=== PATIENT | female | born 1985 | race Caucasian/White ===

== ENCOUNTER 2021-09-01 23:08 | Emergency (ER) | payer BC, SELFPAY ==
[2021-09-01 23:20] VITALS: BP 97/75; PULSE 97; RESP 30; TEMP 36.6; O2SAT 97
--- NOTE | 2021-09-01 23:49 | CRLHL7_ITS ---
For Patients: As a result of the Century Cures Act, medical imaging exams and procedure reports are released immediately into your electronic medical record. You may view this report before your referring provider. If you have questions, please contact your health care provider. INDICATION: Stomach/back pain. TECHNIQUE: CT abdomen and pelvis without contrast. COMPARISON: None. FINDINGS: Lower chest: Unremarkable. Liver: Normal in size and attenuation. No suspicious masses. Gallbladder and bile ducts: No stones or inflammation. No biliary dilatation. Pancreas: Unremarkable. No mass or inflammation. Spleen: Normal in size. No masses. Adrenal glands: Normal in size. No nodules. Kidneys: Normal in size. No suspicious masses, stones, or hydronephrosis. GI tract: Unremarkable. Normal in caliber. No sign of mass or inflammation. Normal appendix. Vasculature: Abdominal aorta is normal in caliber. Lymph nodes: No lymphadenopathy. Peritoneum/Abdominal Wall: Unremarkable. No sign of mass or infiltration. No free air or significant free fluid. Pelvis: Unremarkable. No pelvic masses. Bones: Unremarkable for age. IMPRESSION: No acute intra-abdominal process identified. Please note that all CT scans at this facility use dose modulation, iterative reconstruction, and/or weight-based dosing when appropriate to reduce radiation dose to as low as reasonably achievable. Dictated by Raleigh Gudino MD @ 09/02/2021 12:54:43 AM (Electronically Signed)
[2021-09-02 00:11] LABS: Basophils Absolute Auto 0.04 K/uL (0.00-0.30); Basophils Percent Auto 0.5 % (0.0-3.0); Eosinophils Absolute Auto 0.25 K/uL (0.00-0.50); Eosinophils Percent Auto 3.1 % (0.0-7.0); Hematocrit 37.2 % (33.0-51.0); Hemoglobin* 12.8 gm/dL (12.0-16.0); Immature Granulocytes Abs Auto 0.01 K/uL (0.00-0.30); Lymphocytes Absolute Auto 3.41 K/uL (0.90-2.90); Lymphocytes Percent Auto 42.5 % (20-44); Mean Corpuscular HGB Conc 34 gm/dL (32-36); Mean Corpuscular Hemoglobin 31 pg (26-34); Mean Corpuscular Volume 89 fL (80-100); Monocytes Percent Auto 7.2 % (0.0-11.0); Neutrophils Absolute Auto 3.74 K/uL (1.7-7.0); Neutrophils Percent Auto 46.6 % (42.0-72.0); Platelet Count* 342 K/uL (140-440); RDW Coefficient of Variation % 12.1 % (11.5-15.5); White Blood Count* 8.03 K/uL (4.50-11.00)
[2021-09-02 00:13] LABS: Slide Review Reflex No
[2021-09-02 00:23] LABS: Albumin* 4.6 g/dL (3.3-5.0)
[2021-09-02 00:24] LABS: Chloride* 102 mmol/L (96-114); Potassium* 3.4 mmol/L (3.6-5.1); Sodium* 138 mmol/L (135-149)
[2021-09-02 00:26] LABS: Bilirubin Direct* 0.2 mg/dL (0.0-0.5); Bilirubin Total* 0.3 mg/dL (0.1-1.5); Carbon Dioxide* 28 mmol/L (20-32); Creatinine* 0.7 mg/dL (0.5-1.5); Estimated Glomerular Filt Rate 116 ml/min; Lipase* 72 U/L (23-300)
[2021-09-02 00:27] LABS: Alanine Aminotransferase* 16 U/L (4-35); Alkaline Phosphatase* 52 U/L (40-150); Aspartate Amino Transferase* 24 U/L (12-35); Blood Urea Nitrogen* 17 mg/dL (5-24); Calcium* 9.6 mg/dL (8.4-10.6); Glucose* 99 mg/dL (60-115); Total Protein* 7.4 g/dL (6.0-8.3)
[2021-09-02] MEDS: fentaNYL 100 MCG/2 ML inj 50 MCG IVP (00:27)
[2021-09-02] MEDS: 0.9 % SODIUM CHLORIDE 1000 ml 1,000 ML IV (00:27)
[2021-09-02 01:30] VITALS: BP 120/70; PULSE 82; RESP 16; O2SAT 99
--- NOTE | 2021-09-02 01:34 | ED.NURSE ---
Patient ambulatory to
[2021-09-02 01:58] LABS: Appearance Urine Clear (Clear); Bilirubin Urine Negative (Negative); Blood Urine Negative (Negative); Color Urine Yellow (Yellow); Glucose Urine Negative (Negative); Ketones Urine Negative (Negative); Leukocyte Esterase Urine Negative (Negative); Nitrite Urine Negative (Negative); Protein Urine Negative (Negative); Specific Gravity Urine 1.015 (1.000-1.030); Urobilinogen Urine 0.2 (0.2-1.0); pH Urine 8.5 (5.0-8.5)
[2021-09-02 02:11] LABS: RBC Urine 0-2 (0-2); Squamous Epithelial Cell Urine Moderate (None-Few); WBC Urine 0-2 (0-5)
--- NOTE | 2021-09-07 05:46 | ED_ITS ---
HPI - Abdominal Pain General Chief Complaint: Abdominal Pain Stated Complaint: Stomach and back pain can't breathe Time Seen by Provider: 09/01/21 23:27 History of Present Illness HPI narrative: Patient is a 36-year-old female who comes in with sudden onset of abdominal pain mainly in the epigastric area but spreading outward from there. This came on at shortly after she got a potato chip stuck in her throat and swallowed hard. She has had no fevers or chills. No nausea, vomiting, diarrhea. She denies any dysuria, urgency, frequency. She has not taken anything to help thus far. She has never had pain like this previously. Related Data Patient : No Home Medications Medication Instructions Recorded Confirmed multivitamin 1 tab PO DAILY 09/01/21 09/01/21 Allergies Allergy/AdvReac Type Severity Reaction Status Date / Time azithromycin Allergy Unknown Verified 09/01/21 23:27 Penicillins Allergy Unknown Verified 09/01/21 23:27 Review of Systems Status of ROS Reports: 10 or more systems reviewed and unremarkable except as noted in History and below [facility] Medical History (Updated 09/02/21 @ 01:59 by Mayco Justice MD) Influenza A Tachycardia Surgical History (Updated 09/01/21 @ 23:28 by Chyna Cortes RN) H/O section Social History Smoking Status: Unknown if ever smoked Do you use any of these nicotine containing products: None Second hand tobacco smoke exposure: No How often do you have a drink containing alcohol: never AUDIT-C Alcohol total score: 0 Non-prescribed substance use: denies use service: No Exam Narrative: Exam Narrative: Vitals noted. HEENT: Conjunctiva clear. Tympanic membranes are pearly white bilaterally. Posterior pharynx is clear without erythema or exudate. Neck is supple without adenopathy, thyromegaly, carotid bruit. Lungs: Clear to auscultation in all dun[place]. No wheezes, rales, rhonchi. Heart: Regular rate and rhythm without murmur. Abdomen: Soft with diffuse tenderness. No guarding, rigidity, rebound. Bowel sounds are normal. No palpable masses. Extremities: No cyanosis or edema. Good distal pulses. Skin: No abnormalities noted of the exposed skin. Neurologic: Awake, alert, fully oriented. Neurologic exam is nonfocal. Course Course Hospital Course: Patient is seen and examined. Labs and CT are ordered. She is given a GI cocktail and fentanyl 50 mcg well as L of normal saline. Reevaluation(s) Reevaluation #1: Her pain is mainly resolved. She is reassured by her normal labs and CT. Vital Signs Vital signs: Initial Vital Signs Temperature 97.8 F 09/01/21 23:20 Temperature Source Temporal Artery Scan 09/01/21 23:20 Pulse Rate 97 09/01/21 23:20 Pulse Rhythm 09/01/21 23:20 Respiratory Rate 30 H 09/01/21 23:20 Blood Pressure 97/75 09/01/21 23:20 Blood Pressure Mean 82 09/01/21 23:20 Blood Pressure Position Sitting 09/01/21 23:20 Pulse Oximetry 97 09/01/21 23:20 Oxygen Delivery Method 09/01/21 23:20 Vital Signs Temperature 97.8 F 09/01/21 23:20 Pulse Rate 97 09/01/21 23:20 Respiratory Rate 30 H 09/01/21 23:20 Blood Pressure 97/75 09/01/21 23:20 Pulse Oximetry 97 09/01/21 23:20 Temperature 97.8 F 09/01/21 23:20 Pulse Rate 82 09/02/21 01:30 Respiratory Rate 16 09/02/21 01:30 Blood Pressure 120/70 09/02/21 01:30 Pulse Oximetry 99 09/02/21 01:30 MDM - Abdominal Pain Lab Data Labs: Lab Results 09/01/21 09/01/21 09/01/21 Range/Units 23:25 23:25 23:25 WBC 8.03 (4.50-11.00) K/uL RBC 4.20 (4.00-5.20) m/uL Hgb 12.8 (12.0-16.0) gm/dL Hct 37.2 (33.0-51.0) % MCV 89 (80-100) fL MCH 31 (26-34) pg MCHC 34 (32-36) gm/dL RDW Coeff of Denis 12.1 (11.5-15.5) % Plt Count 342 (140-440) K/uL Neut % (Auto) 46.6 (42.0-72.0) % Lymph % (Auto) 42.5 (20-44) % [place] % (Auto) 7.2 (0.0-11.0) % Eos % (Auto) 3.1 (0.0-7.0) % Baso % (Auto) 0.5 (0.0-3.0) % Neut # (Auto) 3.74 (1.7-7.0) K/uL Lymph # (Auto) 3.41 H (0.90-2.90) K/uL [place] # (Auto) 0.60 (0.00-0.90) K/UL Eos # (Auto) 0.25 (0.00-0.50) K/uL Baso # (Auto) 0.04 (0.00-0.30) K/uL Abs Immat Gran (auto) 0.01 (0.00-0.30) K/uL Sodium 138 (135-149) mmol/L Potassium 3.4 L (3.6-5.1) mmol/L Chloride 102 (96-114) mmol/L Carbon Dioxide 28 (20-32) mmol/L BUN 17 (5-24) mg/dL Creatinine 0.7 (0.5-1.5) mg/dL Estimated GFR 116 ml/min Glucose 99 (60-115) mg/dL Calcium 9.6 (8.4-10.6) mg/dL Total Bilirubin 0.3 (0.1-1.5) mg/dL Direct Bilirubin 0.2 (0.0-0.5) mg/dL AST 24 (12-35) U/L ALT 16 (4-35) U/L Alkaline Phosphatase 52 (40-150) U/L Total Protein 7.4 (6.0-8.3) g/dL Albumin 4.6 (3.3-5.0) g/dL Lipase 72 (23-300) U/L Urine Color (Yellow) Urine Appearance (Clear) Urine pH (5.0-8.5) Ur Specific Jbphh (1.000-1.030) Urine Protein (Negative) Urine Glucose (UA) (Negative) Urine Ketones (Negative) Urine Blood (Negative) Urine Nitrite (Negative) Urine Bilirubin (Negative) Urine Urobilinogen (0.2-1.0) Ur Leukocyte Esterase (Negative) Urine RBC (0-2) Urine WBC (0-5) Ur Squamous Epith Cells (None-Few) Urine Bacteria (None) 09/02/21 Range/Units 01:45 WBC (4.50-11.00) K/uL RBC (4.00-5.20) m/uL Hgb (12.0-16.0) gm/dL Hct (33.0-51.0) % MCV (80-100) fL MCH (26-34) pg MCHC (32-36) gm/dL RDW Coeff of Denis (11.5-15.5) % Plt Count (140-440) K/uL Neut % (Auto) (42.0-72.0) % Lymph % (Auto) (20-44) % [place] % (Auto) (0.0-11.0) % Eos % (Auto) (0.0-7.0) % Baso % (Auto) (0.0-3.0) % Neut # (Auto) (1.7-7.0) K/uL Lymph # (Auto) (0.90-2.90) K/uL [place] # (Auto) (0.00-0.90) K/UL Eos # (Auto) (0.00-0.50) K/uL Baso # (Auto) (0.00-0.30) K/uL Abs Immat Gran (auto) (0.00-0.30) K/uL Sodium (135-149) mmol/L Potassium (3.6-5.1) mmol/L Chloride (96-114) mmol/L Carbon Dioxide (20-32) mmol/L BUN (5-24) mg/dL Creatinine (0.5-1.5) mg/dL Estimated GFR ml/min Glucose (60-115) mg/dL Calcium (8.4-10.6) mg/dL Total Bilirubin (0.1-1.5) mg/dL Direct Bilirubin (0.0-0.5) mg/dL AST (12-35) U/L ALT (4-35) U/L Alkaline Phosphatase (40-150) U/L Total Protein (6.0-8.3) g/dL Albumin (3.3-5.0) g/dL Lipase (23-300) U/L Urine Color Yellow (Yellow) Urine Appearance Clear (Clear) Urine pH 8.5 (5.0-8.5) Ur Specific Jbphh 1.015 (1.000-1.030) Urine Protein Negative (Negative) Urine Glucose (UA) Negative (Negative) Urine Ketones Negative (Negative) Urine Blood Negative (Negative) Urine Nitrite Negative (Negative) Urine Bilirubin Negative (Negative) Urine Urobilinogen 0.2 (0.2-1.0) Ur Leukocyte Esterase Negative (Negative) Urine RBC 0-2 (0-2) Urine WBC 0-2 (0-5) Ur Squamous Epith Cells Moderate A (None-Few) Urine Bacteria None (None) Discharge Plan Discharge Clinical Impression: Abdominal pain Patient Disposition: Home, Self-Care Condition: Improved Instructions: Abdominal Pain (ED) Additional Instructions: Push fluids. [place] diet for the next day or two days. Tylenol or ibuprofen for pain. Follow-up in the clinic if pain returns. Activity Level: No Restrictions Prescriptions: No Action multivitamin Tablet 1 tab PO DAILY 0RF Stand Alone Forms: [employer] Info Instructions
== END 2021-09-02 02:37 | disposition home or self-care (01) ==
LOC: ED 09-02 02:02
PROVIDERS: Emergency Provider Family Medicine; PCP Family Medicine
DX: R10.9 Unspecified abdominal pain (principal)
CPT/HCPCS: 36415; 74176; 80048; 80076; 81001; 81015; 83690; 85025; 96374; 99283; 99284; J3010; J7030

== ENCOUNTER 2021-09-25 21:16 | Emergency (ER) | payer BC, SELFPAY ==
[2021-09-25 21:37] VITALS: BP 141/87; PULSE 79; RESP 18; TEMP 36.9; O2SAT 100; BMI 23.3
--- NOTE | 2021-09-25 21:45 | CRLHL7_ITS ---
For Patients: As a result of the Century Cures Act, medical imaging exams and procedure reports are released immediately into your electronic medical record. You may view this report before your referring provider. If you have questions, please contact your health care provider. HISTORY: Chest pain. COVID-19. TECHNIQUE: One view of the chest. COMPARISON: No prior. FINDINGS: There is no acute lung infiltrate or pulmonary edema. No pneumothorax or pleural effusion. Heart size and pulmonary vasculature within normal limits. Mild scoliosis. IMPRESSION: No acute lung infiltrate. Dictated by Jakob Atwood MD @ 09/25/2021 10:57:24 PM Dictated by: Jakob Atwood MD @ 09/25/2021 22:57:30 (Electronically Signed)
--- NOTE | 2021-09-25 23:04 | ED_ITS ---
HPI - General Adult General Time Seen by Provider: 23:04 Date Seen: 09/25/21 Chief complaint: Chest Pain Stated complaint: Covid pos, w/chest pain Time Seen by Provider: 09/25/21 22:31 Source: patient Mode of arrival: ambulatory Limitations: no limitations History of Present Illness HPI narrative: 36-year-old female who comes in today with chest pain and shortness of breath. Patient started having upper respiratory symptoms a week ago with sinus congestion, body aches, and cough. She had a positive COVID test 6 days ago. Since then she has continued to have some sinus congestion and cough but comes in today concerned about chest pain and shortness of breath. She describes tightness across her chest along with occasional sharp pains. This does not seem to be related with position or activity, and she does not feel like this is worse when she breathes. She has dyspnea with exertion, not as bad at rest. Cough is nonproductive. She denies current vomiting or diarrhea. She denies any history of lung problems, she has a distant history of smoking. Related Data Home Medications Medication Instructions Recorded Confirmed multivitamin 1 tab PO DAILY 09/01/21 09/01/21 Allergies Allergy/AdvReac Type Severity Reaction Status Date / Time azithromycin Allergy Unknown Verified 09/01/21 23:27 Penicillins Allergy Unknown Verified 09/01/21 23:27 Review of Systems Status of ROS: Reports: 10 or more systems reviewed and unremarkable except as noted in History and below [facility] Medical History (Updated 09/26/21 @ 00:26 by Fidel Redmond MD) Influenza A Tachycardia Surgical History (Updated 09/01/21 @ 23:28 by Chyna Cortes RN) H/O section Social History Smoking Status: Former smoker Do you use any of these nicotine containing products: None Second hand tobacco smoke exposure: No How often do you have a drink containing alcohol: monthly or less AUDIT-C Alcohol total score: 1 Non-prescribed substance use: denies use service: No Exam Const: Vital Signs, click to edit/add: Vital Signs - 24 hr 09/25/21 21:37 Temperature 98.5 F Pulse Rate [Left P ulse Oximeter] 79 Respiratory Rate 18 Blood Pressure [Ri ght Upper Arm] 141/87 H Pulse Oximetry 100 Oxygen Delivery Me thod Room Air Documenting provider has reviewed patient's vital signs: yes Common normals: no apparent distress, oriented x3, alert and well nourished HENMT: Common normals: normocephalic, head/scalp atraumatic, external ears normal and external nose normal Head and scalp: normocephalic and atraumatic Nose: external nose normal External ear: external ears normal Eye: Common normals: PERRL and conjunctivae normal Conjunctiva: conjunctiva(e) normal Pupil: PERRL Neck & C-Spine: Common normals: full ROM, no lymphadenopathy and supple Chest: Common normals: palpation of chest normal Resp: Common normals: normal respiratory effort and clear to auscultation bilaterally Auscultation: clear to auscultation bilaterally Cardio: Common normals: regular rate, regular rhythm and no murmurs Rate: regular rate Rhythm: regular rhythm GI: Common normals: Normal to inspection, nondistended, normoactive bowel sounds present, soft to palpation and non-tender Palpation: soft : Common normals: no CVA tenderness Bladder/kidney exam: no CVA tenderness Back & Pelvis: Common normals: no CVA tenderness and thoracic and lumbar spine normal to inspection Extremity: Common normals: normal to inspection, full ROM and no pedal edema Neuro: Common normals: oriented x3, CN's II-XII intact bilaterally and no focal motor deficits Sensorium/orientation: alert Psych: Common normals: mental status grossly normal Skin: Common normals: no rashes or lesions noted General skin exam: no rashes or lesions noted Course Course Hospital Course: Patient seen and examined, prior records are reviewed. Patient about 1 week and having COVID and notes chest tightness and dyspnea on exertion. Oxygen saturat ions here normal and heart rate is normal, lungs are clear. This likely represents normal course of COVID but cannot exclude pulmonary embolism although perc negative, D-dimer is ordered. Myocarditis/endocarditis also possible and labs and EKG are ordered for that. Chest x-ray personally reviewed and interpreted by me is negative. Reevaluation(s) Reevaluation #1: Labs are reassuring including negative D-dimer, negative troponin. Chest x-ray is negative. EKG does not demonstrate any findings of pericarditis. Symptoms are most likely related to residual inflammation from COVID. Continue symptomatic treatment with Tylenol ibuprofen, activity as tolerated. Patient is stable for discharge. Time: 00:24 Vital Signs Vital signs: Initial Vital Signs Temperature 98.5 F 09/25/21 21:37 Temperature Source Temporal Artery Scan 09/25/21 21:37 Pulse Rate 79 09/25/21 21:37 Respiratory Rate 18 09/25/21 21:37 Blood Pressure 141/87 H 09/25/21 21:37 Blood Pressure Mean 105 09/25/21 21:37 Blood Pressure Position Supine 09/25/21 21:37 Pulse Oximetry 100 09/25/21 21:37 Oxygen Delivery Method 09/25/21 21:37 Vital Signs Temperature 98.5 F 09/25/21 21:37 Pulse Rate 79 09/25/21 21:37 Respiratory Rate 18 09/25/21 21:37 Blood Pressure 141/87 H 09/25/21 21:37 Pulse Oximetry 100 09/25/21 21:37 Oxygen Delivery Method 09/25/21 21:37 Temperature 98.5 F 09/25/21 21:37 Pulse Rate 79 09/25/21 21:37 Respiratory Rate 18 09/25/21 21:37 Blood Pressure 141/87 H 09/25/21 21:37 Pulse Oximetry 100 09/25/21 21:37 Oxygen Delivery Method 09/25/21 21:37 Medical Decision Making Medical Records Medical records reviewed: Yes I reviewed the patient's medical records Lab Data Lab results reviewed: Yes I reviewed the patient's lab results Labs: Lab Results 09/25/21 09/25/21 09/25/21 Range/Units 23:15 23:20 23:20 D-Dimer Quant (PE/DVT) 0.28 (0.00-0.50) ug/ml Sodium 137 (135-149) mmol/L Potassium 3.8 (3.6-5.1) mmol/L Chloride 100 (96-114) mmol/L Carbon Dioxide 29 (20-32) mmol/L BUN 10 (5-24) mg/dL Creatinine 0.6 (0.5-1.5) mg/dL Estimated Creat Clear 117.76 Estimated GFR 120 ml/min Glucose 90 (60-115) mg/dL Calcium 8.7 (8.4-10.6) mg/dL NT-Pro-B Natriuret Pep (0-125) PG/mL POC Troponin I 0.00 L (0.01-0.04) ng/ml 09/25/21 Range/Units 23:20 D-Dimer Quant (PE/DVT) (0.00-0.50) ug/ml Sodium (135-149) mmol/L Potassium (3.6-5.1) mmol/L Chloride (96-114) mmol/L Carbon Dioxide (20-32) mmol/L BUN (5-24) mg/dL Creatinine (0.5-1.5) mg/dL Estimated Creat Clear Estimated GFR ml/min Glucose (60-115) mg/dL Calcium (8.4-10.6) mg/dL NT-Pro-B Natriuret Pep 40 (0-125) PG/mL POC Troponin I (0.01-0.04) ng/ml Imaging Data Chest x-ray: Attestation: I have reviewed the pertinent imaging results. My impression: Negative Radiologist's impression: Negative ECG Data Attestation: I personally reviewed and interpreted this ECG as follows: Prior ECG tracings: not available for review Interpretation: Performed at 11:11 p.m. demonstrates normal sinus rhythm rate 62, no acute ST e levations or depressions, normal intervals, normal axis, QTC 426, P are 184. Discharge Plan Discharge Clinical Impression: SPANGLER (dyspnea on exertion), Chest pain Patient Disposition: Home, Self-Care Condition: Stable Instructions: Dyspnea (ED) Additional Instructions: Based on examination today, there is no evidence for blood clots, or heart damage. Your symptoms are likely related to continued inflammation and healing related to your recent COVID infection. Continue activity as tolerated, Tylenol ibuprofen for pain. Follow-up with your primary care doctor in 5-7 days Activity Level: No Restrictions Discharge Diet: Regular Prescriptions: No Action multivitamin Tablet 1 tab PO DAILY Follow Up/Referrals: Norma العراقي MD [Primary Care Provider] - Stand Alone Forms: [facility] Info Instructions
[2021-09-25 23:49] LABS: Chloride* 100 mmol/L (96-114); Potassium* 3.8 mmol/L (3.6-5.1); Sodium* 137 mmol/L (135-149)
[2021-09-25 23:51] LABS: Creatinine* 0.6 mg/dL (0.5-1.5); Est. Creatinine Clearance* 117.76; Estimated Glomerular Filt Rate 120 ml/min
[2021-09-25 23:52] LABS: Blood Urea Nitrogen* 10 mg/dL (5-24); Calcium* 8.7 mg/dL (8.4-10.6); Carbon Dioxide* 29 mmol/L (20-32); Glucose* 90 mg/dL (60-115)
[2021-09-25 23:53] LABS: D Dimer Quantitative* 0.28 ug/ml (0.00-0.50)
[2021-09-26 00:01] LABS: NT Pro B Type NatriureticPept* 40 PG/mL (0-125)
== END 2021-09-26 00:34 | disposition home or self-care (01) ==
PROVIDERS: Emergency Provider Family Medicine; PCP Family Medicine
DX: U07.1 COVID-19 (principal)
CPT/HCPCS: 36415; 71045; 80048; 83880; 84484; 85379; 93005; 99284

== ENCOUNTER 2022-12-06 19:42 | Emergency (ER) | payer BC, SELFPAY ==
[2022-12-06 20:00] VITALS: BP 128/82; PULSE 89; RESP 18; TEMP 36.9; O2SAT 100
[2022-12-06 20:52] VITALS: BP 125/70; PULSE 76; RESP 18; O2SAT 98
--- NOTE | 2022-12-06 21:06 | ED_ITS ---
HPI - Chest Pain General Chief Complaint: Chest Pain Stated Complaint: Chest pain Time Seen by Provider: 12/06/22 20:50 History of Present Illness HPI narrative: This 37-year-old female comes in reporting pain in her back that has been recurrent but now has been having pain also in her left chest that is reproducible when taking a deep breath. She also is concerned because she had some drainage from her left nipple and has noticed that that nipple seems involuted now. She also notes a dimple in the inferior portion of her left breast. She states that her family has a history of breast cancer. She does have a remote history of smoking but has quit smoking now. She does not report any fevers or injury event. She states that she does not go to a doctor as she is a single mother and is devoid Ng all of her energies to being a mother and keeping her family going and thereby neglect Ng some of her own checkups. Related Data Home Medications Medication Instructions Recorded Confirmed multivitamin 1 tab PO DAILY 09/01/21 11/30/21 Previous Rx's Medication Instructions Recorded triamcinolone acetonide 0.1 % 1 applic topical BID #15 grams 12/06/22 topical cream Allergies Allergy/AdvReac Type Severity Reaction Status Date / Time azithromycin Allergy Unknown Verified 12/06/22 22:37 Penicillins Allergy Unknown Verified 12/06/22 22:37 erythromycin Allergy Unknown Uncoded 12/06/22 22:37 Review of Systems Status of ROS Reports: 10 or more systems reviewed and unremarkable except as noted in History and below Narrative Constitutional: No fevers, no weight gain or loss. Eyes: No discharge. No vision changes. HENT: No congestion, no sore throat, no ear pain. Cardiovascular: No chest pain, no palpitations. Respiratory: No shortness of breath, no wheezes, no cough. Gastrointestinal: No abdominal pain, no vomiting, no diarrhea. Genitourinary: No dysuria, no hematuria. Musculoskeletal: Normal range of motion. Skin: No rashes, no pruritis. Neurological: No dizziness, weakness, sensory change, speech change. Endo/Heme/Allergies: No bruising or bleeding. No polydipsia. Pysch: no suicidality, no anxiety, no insomnia. All other systems reviewed and are negative. [facility] Medical History (Updated 12/06/22 @ 23:03 by Amado Sosa MD) Tachycardia ?R00.0 - Tachycardia, unspecified (ICD-10) Influenza A ?J10.1 - Influenza due to other identified influenza virus with other respiratory manifestations (ICD-10) Surgical History (Updated 09/01/21 @ 23:28 by Chyna Cortes RN) H/O section ?Z98.891 - History of uterine scar from previous surgery (ICD-10) Social History Smoking Status: Never smoker Do you use any of these nicotine containing products: None Second hand tobacco smoke exposure: No How often do you have a drink containing alcohol: monthly or less AUDIT-C Alcohol total score: 1 Non-prescribed substance use: denies use service: No Exam Narrative Exam Narrative: Constitutional: Well-developed, well-nourished, no acute distress. HEENT: Normocephalic, atraumatic. Neck: Normal range of motion. Nontender. Supple. Heart: Regular. No murmurs. Normal rate. Intact distal pulses. Lungs: Clear to auscultation. No chest discomfort. No wheezes, rhonchi, or rales. Abdomen: Normal bowel sounds. Nontender. No rebound tenderness. Genitalia: Deferred. Back: No midline tenderness. Normal range of motion. Extremities: Normal range of motion. No injury. Skin: Intact. No rash. Warm. No erythema or pallor. Neurologic: No altered sensation. No weakness. Alert and oriented. Psychiatric: No suicidality. No anxiety or depression. No insomnia. Nursing notes and vitals signs are reviewed. Const Vital Signs, click to edit/add: Vital Signs - 24 hr 12/06/22 20:00 Temperature 98.5 F Pulse Rate [Left Pulse Oximeter] 89 Respiratory Rate 18 Blood Pressure [Right Upper Arm] 128/82 Pulse Oximetry 100 Oxygen Delivery Method Room Air Course Vital Signs Vital signs: Initial Vital Signs Temperature 98.5 F 12/06/22 20:00 Temperature Source Temporal Artery Scan 12/06/22 20:00 Pulse Rate 89 12/06/22 20:00 Pulse Rhythm Regular 12/06/22 20:00 Respiratory Rate 18 12/06/22 20:00 Blood Pressure 128/82 12/06/22 20:00 Blood Pressure Mean 97 12/06/22 20:00 Blood Pressure Position Sitting 12/06/22 20:00 Pulse Oximetry 100 12/06/22 20:00 Oxygen Delivery Method Room Air 12/06/22 20:00 Vital Signs Temperature 98.5 F 12/06/22 20:00 Pulse Rate 89 12/06/22 20:00 Respiratory Rate 18 12/06/22 20:00 Blood Pressure 128/82 12/06/22 20:00 Pulse Oximetry 100 12/06/22 20:00 Oxygen Delivery Method Room Air 12/06/22 20:00 Temperature 98.5 F 12/06/22 20:00 Pulse Rate 89 12/06/22 20:00 Respiratory Rate 18 12/06/22 20:00 Blood Pressure 128/82 12/06/22 20:00 Pulse Oximetry 100 12/06/22 20:00 Oxygen Delivery Method Room Air 12/06/22 20:00 MDM - Chest Pain MDM Narrative Medical decision making narrative: This patient comes in reporting left chest pain and back pain that is reproducible when taking a deep breath. She states that she has not been to the doctor and has anxiety about her health. Her mother has diseases including breast cancer and she is worried about these things happening to her. I did use bedside ultrasound and saw normal exam of her left breast. Additionally a CT scan of her chest with IV contrast was completed. This returns with no acute findings and is reassuring to her. I ordered these because of her anxiety about her symptoms and her family history. Most likely her symptoms are related to chest wall pain. I did recommend getting a mammogram. I provided prescription for Toradol and Flexeril. She also received a prescription for triamcinolone cream as she has some itchy rash on her left knee. Lab Data Labs: Lab Results 12/06/22 12/06/22 12/06/22 Range/Units 21:05 21:28 21:28 WBC 8.14 (4.50-11.00) K/uL RBC 4.12 (4.00-5.20) m/uL Hgb 12.5 (12.0-16.0) gm/dL Hct 37.1 (33.0-51.0) % MCV 90 (80-100) fL MCH 30 (26-34) pg MCHC 34 (32-36) gm/dL RDW Coeff of Denis 11.9 (11.5-15.5) % Plt Count 297 (140-440) K/uL Neut % (Auto) 59.5 (42.0-72.0) % Lymph % (Auto) 30.8 (20-44) % [place] % (Auto) 6.4 (0.0-11.0) % Eos % (Auto) 2.8 (0.0-7.0) % Baso % (Auto) 0.4 (0.0-3.0) % Neut # (Auto) 4.84 (1.7-7.0) K/uL Lymph # (Auto) 2.51 (0.90-2.90) K/uL [place] # (Auto) 0.50 (0.00-0.90) K/UL Eos # (Auto) 0.23 (0.00-0.50) K/uL Baso # (Auto) 0.03 (0.00-0.30) K/uL Abs Immat Gran (auto) 0.01 (0.00-0.30) K/uL Imm/Tot Granulo (auto) 0.1 % Sodium 137 (135-149) mmol/L Potassium 3.5 L (3.6-5.1) mmol/L Chloride 103 (96-114) mmol/L Carbon Dioxide 25 (20-32) mmol/L Anion Gap 9 (7-15) mEq/L BUN 17 (5-24) mg/dL Creatinine 0.7 (0.5-1.5) mg/dL Estimated GFR 115 ml/min Glucose 82 (60-115) mg/dL Calcium 9.0 (8.4-10.6) mg/dL C-Reactive Protein < 0.5 L Cancelled (0.5-1.0) mg/dL POC Troponin I 0.00 L (0.01-0.04) ng/ml Imaging Data CT scan - chest: Radiologist's impression: No pulmonary embolism. ECG Data Attestation: I personally reviewed and interpreted this ECG as follows: Interpretation: Normal sinus rhythm. Rate is 82 beats per minute. There are no ST or T-wave abnormalities. Discharge Plan Discharge Clinical Impression: Acute chest wall pain Patient Disposition: Home, Self-Care Condition: Stable Additional Instructions: Take medications as needed and directed. Follow up with primary physician. Return if worsening symptoms occur. Prescriptions: New triamcinolone acetonide 0.1 % cream 1 applic topical BID Qty: 15 0RF No Action multivitamin Tablet 1 tab PO DAILY Follow Up/Referrals: Norma العراقي MD [Primary Care Provider] - Stand Alone Forms: [employer]th Info Instructions
[2022-12-06 21:48] LABS: Basophils Absolute Auto 0.03 K/uL (0.00-0.30); Basophils Percent Auto 0.4 % (0.0-3.0); Eosinophils Absolute Auto 0.23 K/uL (0.00-0.50); Eosinophils Percent Auto 2.8 % (0.0-7.0); Hematocrit 37.1 % (33.0-51.0); Hemoglobin* 12.5 gm/dL (12.0-16.0); Immature Granulocytes Abs Auto 0.01 K/uL (0.00-0.30); Immature Granulocytes Pct Auto 0.1 %; Lymphocytes Absolute Auto 2.51 K/uL (0.90-2.90); Lymphocytes Percent Auto 30.8 % (20-44); Mean Corpuscular HGB Conc 34 gm/dL (32-36); Mean Corpuscular Hemoglobin 30 pg (26-34); Mean Corpuscular Volume 90 fL (80-100); Monocytes Percent Auto 6.4 % (0.0-11.0); Neutrophils Absolute Auto 4.84 K/uL (1.7-7.0); Neutrophils Percent Auto 59.5 % (42.0-72.0); Platelet Count* 297 K/uL (140-440); RDW Coefficient of Variation % 11.9 % (11.5-15.5); Red Blood Count 4.12 m/uL (4.00-5.20); White Blood Count* 8.14 K/uL (4.50-11.00)
--- NOTE | 2022-12-06 21:48 | CRLHL7_ITS ---
For Patients: As a result of the Century Cures Act, medical imaging exams and procedure reports are released immediately into your electronic medical record. You may view this report before your referring provider. If you have questions, please contact your health care provider. INDICATION: Chest pain. TECHNIQUE: CT chest PE was acquired with 95 cc Isovue 370 IV contrast. COMPARISON: None. FINDINGS: Heart and vasculature: Contrast opacification of the pulmonary arterial tree is adequate. No sign of pulmonary embolism. Heart size is normal. Thoracic aorta and pulmonary artery are normal in caliber. Lungs and pleura: No suspicious nodules or infiltrates. No pleural effusions, pleural thickening, or pneumothorax. Lymph nodes/mediastinum: No mediastinal, hilar, or axillary adenopathy. Chest wall: No masses. Upper abdomen: No acute or significant findings. Bones: Unremarkable for age. IMPRESSION: No pulmonary embolism. No focal consolidations. Please note that all CT scans at this facility use dose modulation, iterative reconstruction, and/or weight-based dosing when appropriate to reduce radiation dose to as low as reasonably achievable. Dictated by Joe Foster MD @ 12/06/2022 10:45:57 PM (Electronically Signed)
[2022-12-06 21:52] LABS: Slide Review Reflex No
[2022-12-06 21:58] LABS: Chloride* 103 mmol/L (96-114); Potassium* 3.5 mmol/L (3.6-5.1); Sodium* 137 mmol/L (135-149)
[2022-12-06 22:01] LABS: Creatinine* 0.7 mg/dL (0.5-1.5); Estimated Glomerular Filt Rate 115 ml/min
[2022-12-06 22:02] LABS: Anion Gap 9 mEq/L (7-15); Blood Urea Nitrogen* 17 mg/dL (5-24); Carbon Dioxide* 25 mmol/L (20-32); Glucose* 82 mg/dL (60-115)
[2022-12-06 22:06] LABS: C Reactive Protein* < 0.5 mg/dL (0.5-1.0)
[2022-12-06 23:21] VITALS: BP 130/78; PULSE 72; RESP 14; O2SAT 100
== END 2022-12-06 23:22 | disposition home or self-care (01) ==
PROVIDERS: Emergency Provider Emergency Medicine Emergency Medical Services; PCP Family Medicine
DX: R07.89 Other chest pain (principal)
CPT/HCPCS: 36415; 71275; 80048; 84484; 85025; 86140; 93005; 99284; Q9967

== ENCOUNTER 2023-04-22 09:30 | Emergency (ER) | payer BC, SELFPAY ==
[2023-04-22 09:41] VITALS: BP 132/74; PULSE 82; RESP 18; TEMP 36.2; O2SAT 96; BMI 22.5
[2023-04-22 10:29] LABS: PCR FLU A Negative PCR FLU A (Negative); PCR FLU B POSITIVE PCR FLU B (Negative); PCR RSV Negative PCR RSV (Negative); SARS PCR* Negative SARS-CoV-2 (Negative)
--- NOTE | 2023-04-22 10:48 | XR_ITS ---
Patient: FLORY SCOTT Facility:?[facility] Patient ID:?[id number] Site Patient ID:?[id number]. Site :?[id number] Study:?XRay-Chest 2V-04/22/2023 11:02:12 AM Ordering Physician:?DR. TORRES Final Report: Indication: Shortness of breath Technique: PA and lateral views of the chest. Comparison: 12/06/2022 Findings: Normal cardiomediastinal silhouette. No focal consolidation, pleural effusions, or visualized pneumothorax. Impression: No acute cardiopulmonary disease. Dictated by Daniele Louise MD @ 04/22/2023 11:07:37 AM Signed by:?Daniele Louise MD @04/22/2023 11:07:37 AM (Electronic Signature)
--- NOTE | 2023-04-22 10:49 | ED.GENADULT ---
HPI - General Adult General Chief complaint: Shortness of Breath/Dyspnea Stated complaint: Chest pain, short of breath Time Seen by Provider: 04/22/23 10:24 History of Present Illness HPI narrative: This 38-year-old female comes in reporting upper respiratory symptoms for the past week and a half. She states that she has been feeling short of breath over the past few days. She did measure oximetry at home at 88% at 1 point. She does not report any fevers. Related Data Home Medications Medication Instructions Recorded Confirmed multivitamin 1 tab PO DAILY 09/01/21 11/30/21 cyclobenzaprine 5 mg tablet 5 - 10 mg PO Q8H PRN muscle spasm 04/22/23 04/22/23 propranolol 20 mg tablet 20 mg PO ONCE 04/22/23 04/22/23 spironolactone 50 mg tablet 50 mg PO DAILY 04/22/23 04/22/23 Previous Rx's Medication Instructions Recorded triamcinolone acetonide 0.1 % 1 applic topical BID #15 grams 12/06/22 topical cream acetaminophen 300 mg-codeine 30 mg 1 tab PO Q6H PRN pain #15 tabs 04/22/23 tablet methylprednisolone 4 mg tablets in See Rx Instructions PO .COMPLEX 04/22/23 a dose pack (Medrol (Jluis)) #21 ea Allergies Allergy/AdvReac Type Severity Reaction Status Date / Time azithromycin Allergy Unknown Verified 12/06/22 22:37 Penicillins Allergy Unknown Verified 12/06/22 22:37 erythromycin Allergy Unknown Uncoded 12/06/22 22:37 Review of Systems Status of ROS: Reports: 10 or more systems reviewed and unremarkable except as noted in History and below Narrative: Constitutional: No fevers, no weight gain or loss. Eyes: No discharge. No vision changes. HENT: No congestion, no sore throat, no ear pain. Cardiovascular: No chest pain, no palpitations. Respiratory: No wheezes. Occasional cough. Shortness of breath as described above. Gastrointestinal: No abdominal pain, no vomiting, no diarrhea. Genitourinary: No dysuria, no hematuria. Musculoskeletal: Normal range of motion. Skin: No rashes, no pruritis. Neurological: No dizziness, weakness, sensory change, speech change. Endo/Heme/Allergies: No bruising or bleeding. No polydipsia. Pysch: no suicidality, no anxiety, no insomnia. All other systems reviewed and are negative. [facility] Medical History (Updated 04/22/23 @ 13:27 by Amado Sosa MD) Tachycardia ?R00.0 - Tachycardia, unspecified (ICD-10) Influenza A ?J10.1 - Influenza due to other identified influenza virus with other respiratory manifestations (ICD-10) Surgical History (Updated 09/01/21 @ 23:28 by Chyna Cortes RN) H/O section ?Z98.891 - History of uterine scar from previous surgery (ICD-10) Social History Smoking Status: Never smoker Do you use any of these nicotine containing products: None Second hand tobacco smoke exposure: No How often do you have a drink containing alcohol: monthly or less AUDIT-C Alcohol total score: 1 Non-prescribed substance use: denies use service: No Exam Narrative: Exam Narrative: Constitutional: Well-developed, well-nourished, no acute distress. HEENT: Normocephalic, atraumatic. Neck: Normal range of motion. Nontender. Supple. Heart: Regular. No murmurs. Normal rate. Intact distal pulses. Lungs: Clear to auscultation. No chest discomfort. No wheezes, rhonchi, or rales. Abdomen: Normal bowel sounds. Nontender. No rebound tenderness. Genitalia: Deferred. Back: No midline tenderness. Normal range of motion. Extremities: Normal range of motion. No injury. Skin: Intact. No rash. Warm. No erythema or pallor. Neurologic: No altered sensation. No weakness. Alert and oriented. Psychiatric: No suicidality. No anxiety or depression. No insomnia. Nursing notes and vitals signs are reviewed. Const: Vital Signs, click to edit/add: Vital Signs - 24 hr 04/22/23 09:41 Temperature 97.2 F L Pulse Rate [Pulse Oximeter] 82 Respiratory Rate 18 Blood Pressure [Ri ght Upper Arm] 132/74 Pulse Oximetry 96 Course Vital Signs Vital signs: Initial Vital Signs Temperature 97.2 F L 04/22/23 09:41 Temperature Source Temporal Artery Scan 04/22/23 09:41 Pulse Rate 82 04/22/23 09:41 Pulse Rhythm Regular 04/22/23 09:41 Respiratory Rate 18 04/22/23 09:41 Blood Pressure 132/74 04/22/23 09:41 Blood Pressure Mean 93 03/08/24 09:41 Pulse Oximetry 96 04/22/23 09:41 Vital Signs Temperature 97.2 F L 04/22/23 09:41 Pulse Rate 82 04/22/23 09:41 Respiratory Rate 18 04/22/23 09:41 Blood Pressure 132/74 04/22/23 09:41 Pulse Oximetry 96 04/22/23 09:41 Temperature 97.2 F L 04/22/23 09:41 Pulse Rate 82 04/22/23 09:41 Respiratory Rate 18 04/22/23 09:41 Blood Pressure 132/74 04/22/23 09:41 Pulse Oximetry 96 04/22/23 09:41 Medications Administered Medications: Discontinued Medications Generic Name Dose Route Start Last Admin Trade Name Jolynn PRN Reason Stop Dose Admin Dexamethasone 10 mg 04/22/23 10:48 04/22/23 11:15 Dexamethasone 10 Mg/Ml Inj PO 04/22/23 10:49 10 mg ONCE ONE Administration Medical Decision Making MDM Narrative Medical decision making narrative: This patient comes in with concern about feeling short of breath with upper respiratory symptoms that began about a week and half ago. Nasal pharyngeal swab returns positive for influenza B. the patient is interested in chest x-ray and lab results. These are acquired and show no acute findings. The patient did receive an oral dose of dexamethasone 10 mg. She is okay to be discharged home. She received prescriptions for Medrol Dosepak and Tylenol 3. Lab Data Labs: Lab Results 04/22/23 04/22/23 Range/Units 09:46 12:53 WBC 3.83 L (4.50-11.00) K/uL RBC 4.26 (4.00-5.20) m/uL Hgb 12.7 (12.0-16.0) gm/dL Hct 38.1 (33.0-51.0) % MCV 89 (80-100) fL MCH 30 (26-34) pg MCHC 33 (32-36) gm/dL RDW Coeff of Denis 12.1 (11.5-15.5) % Plt Count 223 (140-440) K/uL Neut % (Auto) 79.3 H (42.0-72.0) % Lymph % (Auto) 15.7 L (20-44) % [place] % (Auto) 4.4 (0.0-11.0) % Eos % (Auto) 0.3 (0.0-7.0) % Baso % (Auto) 0.3 (0.0-3.0) % Neut # (Auto) 3.00 (1.7-7.0) K/uL Lymph # (Auto) 0.60 L (0.90-2.90) K/uL [place] # (Auto) 0.20 (0.00-0.90) K/UL Eos # (Auto) 0.00 (0.00-0.50) K/uL Baso # (Auto) 0.00 (0.00-0.30) K/uL Abs Immat Gran (auto) 0.00 (0.00-0.30) K/uL Imm/Tot Granulo (auto) 0.0 % Sodium 137 (135-149) mmol/L Potassium 4.1 (3.6-5.1) mmol/L Chloride 102 (96-114) mmol/L Carbon Dioxide 29 (20-32) mmol/L Anion Gap 6 L (7-15) mEq/L BUN 13 (5-24) mg/dL Creatinine 0.6 (0.5-1.5) mg/dL Estimated Creat Clear 115.52 Estimated GFR 118 ml/min Glucose 89 (60-115) mg/dL Calcium 8.9 (8.4-10.6) mg/dL SARS-CoV-2 (PCR) Negative SARS-CoV-2 (Negative) Influenza Type A (PCR) Negative PCR FLU A (Negative) Influenza Type B (PCR) POSITIVE PCR FLU B A (Negative) RSV (PCR) Negative PCR RSV (Negative) Imaging Data Chest x-ray: Radiologist's impression: No acute cardiopulmonary disease. Discharge Plan Discharge Clinical Impression: Influenza B Patient Disposition: Home, Self-Care Condition: Stable Additional Instructions: Take medication as needed and directed. Follow up with MD return if worsening. Prescriptions: New acetaminophen-codeine 300-30 mg tablet 1 tab PO Q6H PRN (Reason: pain) Qty: 15 0RF methylprednisolone [Medrol (Jluis)] 4 mg tablets,dose pack See Rx Instructions .ROUTE .COMPLEX Qty: 21 0RF Rx Instructions: orally per package directions No Action triamcinolone acetonide 0.1 % cream 1 applic topical BID Qty: 15 0RF multivitamin Tablet 1 tab PO DAILY spironolactone 50 mg tablet 50 mg PO DAILY cyclobenzaprine 5 mg tablet 5 - 10 mg PO Q8H PRN (Reason: muscle spasm) propranolol 20 mg tablet 20 mg PO ONCE Follow Up/Referrals: Norma العراقي MD [Primary Care Provider] - Stand Alone Forms: [employer] Info Instructions
[2023-04-22] MEDS: dexAMETHasone 10 MG/ML inj PO (11:15)
[2023-04-22 12:59] LABS: Basophils Percent Auto 0.3 % (0.0-3.0); Eosinophils Percent Auto 0.3 % (0.0-7.0); Hematocrit 38.1 % (33.0-51.0); Hemoglobin* 12.7 gm/dL (12.0-16.0); Lymphocytes Percent Auto 15.7 % (20-44); Mean Corpuscular HGB Conc 33 gm/dL (32-36); Mean Corpuscular Hemoglobin 30 pg (26-34); Mean Corpuscular Volume 89 fL (80-100); Monocytes Percent Auto 4.4 % (0.0-11.0); Neutrophils Percent Auto 79.3 % (42.0-72.0); Platelet Count* 223 K/uL (140-440); RDW Coefficient of Variation % 12.1 % (11.5-15.5); Red Blood Count 4.26 m/uL (4.00-5.20); White Blood Count* 3.83 K/uL (4.50-11.00)
[2023-04-22 13:00] LABS: Slide Review Reflex No
[2023-04-22 13:11] LABS: Chloride* 102 mmol/L (96-114); Potassium* 4.1 mmol/L (3.6-5.1); Sodium* 137 mmol/L (135-149)
[2023-04-22 13:14] LABS: Anion Gap 6 mEq/L (7-15); Blood Urea Nitrogen* 13 mg/dL (5-24); Carbon Dioxide* 29 mmol/L (20-32); Creatinine* 0.6 mg/dL (0.5-1.5); Est. Creatinine Clearance* 115.52; Estimated Glomerular Filt Rate 118 ml/min
[2023-04-22 13:15] LABS: Calcium* 8.9 mg/dL (8.4-10.6); Glucose* 89 mg/dL (60-115)
== END 2023-04-22 13:36 | disposition home or self-care (01) ==
PROVIDERS: Emergency Provider Emergency Medicine Emergency Medical Services; PCP Family Medicine
DX: J10.1 Influenza due to other identified influenza virus with other respiratory manifestations (principal)
CPT/HCPCS: 36415; 71046; 80048; 85025; 87631; 99284; J1100